=== PATIENT | female | born 1980 | race American Indian/Alaskan Native ===

== ENCOUNTER 2016-07-18 19:53 | Outpatient (CLI) | payer OTHER ==
[2016-07-18] MEDS ORDERED: VISTARIL PO ONE (20:48)
[2016-07-19] MEDS ORDERED: LACTATED RINGERS 0 ML ONE (02:18)
[2016-07-19] MEDS ORDERED: LACTATED RINGERS 1,000 ML ONE (02:18)
[2016-07-19] MEDS ORDERED: POLYCILLIN/NS 2 GM/100 ML 0 GM/0 ML BAG IV ONE (02:18)
[2016-07-19 06:56] VITALS: BP 130/76
== END 2016-07-18 22:15 | disposition home or self-care (01) ==
LOC: TRG 19:53
PROVIDERS: ATTEND Obstetrics & Gynecology
DX: O48.0 Post-term pregnancy (principal); Z3A.40 40 weeks gestation of pregnancy
CPT/HCPCS: 59025; J0290; J7120; Q0177

== ENCOUNTER 2016-07-19 02:07 | Inpatient (IN) | payer OTHER ==
[2016-07-19] MEDS ORDERED: SUBLIMAZE ONE (02:41)
[2016-07-19] MEDS ORDERED: POLYCILLIN/NS 2 GM/100 ML 2 GM/100 ML BAG IV ONE (02:42)
[2016-07-19] MEDS ORDERED: LACTATED RINGERS 2,000 ML ONE (02:42)
[2016-07-19] MEDS ORDERED: ePHEDrine SULFATE ONE (03:22)
[2016-07-19] MEDS ORDERED: fentaNYL-BUPIV 2 MCG/ML-0.125% 200 MCG/100 ML BAG EPIDURAL ONE (03:50)
[2016-07-19] MEDS ORDERED: PITOCin/NS 20 UNIT/1000ML DRIP 20,000 MILLIUNITS/1,000 ML BAG IV ONE (04:03)
[2016-07-19] MEDS ORDERED: MINERAL OIL ONE (04:09)
[2016-07-19] MEDS ORDERED: ERYTHROMYCIN OPHTH OINT ONE (05:13)
[2016-07-19] MEDS ORDERED: SUBLIMAZE IV ONE (07:00)
[2016-07-19] MEDS ORDERED: PERCOCET 5/325 ONE (08:11)
[2016-07-19 08:15] LABS: Hematocrit 36.7 % (30.3-42.9); Hemoglobin 11.5 gm/dl (10.1-14.3)
[2016-07-19] MEDS ORDERED: TYLENOL PO PRN (08:15)
[2016-07-19] MEDS: PERCOCET 5/325 PO PRN ×2 (08:15→23:42)
[2016-07-19] MEDS ORDERED: DERMOPLAST TP PRN (09:00)
[2016-07-19] MEDS ORDERED: PHENERGAN PR PRN (09:00)
[2016-07-19] MEDS ORDERED: ZOFRAN IV PRN (09:00)
[2016-07-19] MEDS ORDERED: BENADRYL PO PRN (09:00)
[2016-07-19] MEDS ORDERED: PITOCin/NS 20 UNIT/1000ML DRIP 20 UNITS/1,000 ML BAG IV SCH (09:00)
[2016-07-19] MEDS ORDERED: TUCKS PAD TP PRN (09:00)
[2016-07-19] MEDS ORDERED: LANSINOH TP PRN (09:00)
[2016-07-19] MEDS ORDERED: MILK OF MAGNESIA PO PRN (09:00)
[2016-07-19] MEDS ORDERED: SODIUM CHLORIDE FLUSH SYRINGE 10 ML IV NR (09:00)
[2016-07-19] MEDS ORDERED: DULCOLAX PR PRN (09:00)
[2016-07-19] MEDS ORDERED: PHENERGAN PO PRN (09:00)
[2016-07-19 10:29] LABS: White Blood Count 15.2 K/mm3 (4.5-11.0)
[2016-07-19 10:30] LABS: Hematocrit 36.7 % (30.3-42.9); Hemoglobin 11.5 gm/dl (10.1-14.3); Mean Corpuscular HGB Conc 31 % (30-34); Mean Corpuscular Hemoglobin 24 pg (28-32); Mean Corpuscular Volume 76 fl (79-97); Platelet Count 197 K/mm3 (140-440); Red Blood Count 4.82 M/mm3 (3.65-5.03); Red Cell Distribution Width 14.3 % (13.2-15.2)
[2016-07-19 10:32] LABS: Basophils % (Manual) 0 % (0.0-1.8); Blastocytes % (Manual) 0 %; Eosinophils % (Manual) 0 % (0.0-4.3)
[2016-07-19 10:33] LABS: Diff Status Complete; Hypochromasia 1+; Ovalocytes 1+; Poikilocytosis 1+
[2016-07-19] MEDS: MOTRIN PO SCH ×3 (12:55→23:41)
[2016-07-19] MEDS: PRENATAL VITAMIN PO SCH (12:56)
[2016-07-19 19:14] LABS: Hematocrit 31.9 % (30.3-42.9); Hemoglobin 10.1 gm/dl (10.1-14.3)
[2016-07-20] MEDS: MOTRIN PO SCH ×3 (05:48→18:40)
[2016-07-20] MEDS ORDERED: BOOSTRIX IM ONE (06:00)
--- NOTE | 2016-07-20 08:13 | Progress Note ---
Assessment and Plan A/P PPD#1 s/p doing well tolerating diet pain controlled lochia min-mod uterus firm breast and bottle feeding d/c home tomorrow Rh+ no rhogam indicated Subjective - Subjective Date of service: 07/20/16 Principal diagnosis: s/p Patient reports: appetite normal, voiding normally, pain well controlled, ambulating normally : doing well, nursing well, bottle feeding Objective - Vital Signs Latest vital signs: Vital Signs Temp Pulse Resp BP 07/20/16 05:48 18 07/20/16 01:00 98.5 F 91 H 20 112/57 07/19/16 23:42 18 07/19/16 23:41 18 07/19/16 16:18 98.6 F 76 18 118/68 07/19/16 12:42 98.5 F 84 20 136/60 07/19/16 10:00 140/64 Intake and Output 07/19/16 07/20/16 07/20/16 22:59 06:59 14:59 Intake Total 240 480 Balance 240 480 Intake: Oral 240 Intake, Free Water 480 Other: Total, Intake Amount 240 # Voids Void 1 2 - Exam Breasts: Present: normal Cardiovascular: Present: Regular rate, Normal S1, Normal S2 Lungs: Present: Clear to auscultation, Normal air movement Abdomen: Present: normal appearance, soft, normal bowel sounds. Absent: distention, tenderness Vulva: both: normal Uterus: Present: normal, firm. Absent: tenderness Extremities: Present: normal Deep Tendon Reflex Grade: Normal +2 Incision: Present: normal, dry - Labs Labs: Abnormal lab results 07/19/16 Range/Units 02:35 WBC 15.2 H (4.5-11.0) K/mm3 MCV 76 L (79-97) fl MCH 24 L (28-32) pg Seg Neuts % (Manual) 90.0 H (40.0-70.0) % Lymphocytes % (Manual) 4.0 L (13.4-35.0) % Seg Neutrophils # Man 13.7 H (1.8-7.7) K/mm3 Lymphocytes # (Manual) 0.6 L (1.2-5.4) K/mm3
[2016-07-20] MEDS ORDERED: M-M-R II VACCINE SUB-Q ONE (12:00)
[2016-07-20] MEDS: PRENATAL VITAMIN PO SCH (12:05)
[2016-07-21] MEDS: MOTRIN PO SCH ×2 (00:02→03:20)
--- NOTE | 2016-07-21 07:43 | Discharge Summary ---
Providers - Providers Date of Admission: 07/19/16 02:07 Date of discharge: 07/21/16 Attending physician: JEAN COTTRELL MD 07/19/16 08:16 Consult to Color Checker [CONS] Routine Reason For Exam: assistance with , SNS Primary care physician: JERRY MIN Hospitalization Reason for admission: active labor Delivery: Episiotomy: none Laceration: none Other procedures: none complications: none Discharge diagnosis: IUP at term delivered baby: male Condition at discharge: Good Disposition: DISCHARGED TO HOME OR SELFCARE Plan - Discharge Medications Prescriptions: Ferrous Sulfate [Feosol 325 MG tab] 325 mg PO BID #30 tablet Ibuprofen [Motrin] 600 mg PO Q8H PRN #30 tablet PRN Reason: Pain Ibuprofen [Motrin 600 MG tab] 600 mg PO Q6H #30 tablet oxyCODONE /ACETAMINOPHEN [Percocet 5/325] 1 tab PO Q6HR PRN #20 tablet PRN Reason: Pain oxyCODONE /ACETAMINOPHEN [Percocet 5/325 mg] 2 tab PO Q4H PRN #30 tablet PRN Reason: Pain, Moderate (4-6) Vit-Fe Fumar-FA [ Vitamin] 1 each PO QDAY #30 tablet - Provider Discharge Summary Activity: no sex for 6 weeks, no strenuous exercise Diet: routine Instructions: routine Additional instructions: [] Smoking cessation referral if applicable(refer to patient education folder for contact #) [] Refer to [facility] Booklet Call your doctor immediately for: * Fever > 100.5 * Heavy vaginal bleeding ( >1 pad per hour) * Severe persistent headache * Shortness of breath * Reddened, hot, painful area to leg or breast * Drainage or odor from incision. * Keep incision clean and dry at all times and follow doctor's instructions regarding bathing/showering - Follow up plan Follow up: JERRY MIN MD [Primary Care Provider] - 7 Days JEAN COTTRELL MD [Staff Physician] - 07/22/17
--- NOTE | 2016-07-21 07:45 | Progress Note ---
Assessment and Plan A/P PPD#2 s/p doing well tolerating diet pain controlled lochia min-mod uterus firm breast and bottle feeding met discharge criteria today Rh+ no rhogam indicated f/u in 4 weeks for PP check Subjective - Subjective Date of service: 07/21/16 Principal diagnosis: s/p Patient reports: appetite normal, voiding normally, pain well controlled, ambulating normally : doing well, nursing well Objective - Vital Signs Latest vital signs: Vital Signs Temp Pulse Resp BP 07/21/16 00:00 98.6 F 82 22 114/72 07/20/16 19:40 98.6 F 84 22 110/68 07/20/16 15:53 98.2 F 90 18 130/84 07/20/16 08:30 98.0 F 91 H 16 120/69 Intake and Output 07/20/16 07/21/16 07/21/16 22:59 06:59 14:59 Intake Total 1060 300 Balance 1060 300 Intake: Oral 660 Intake, Free Water 400 300 Other: Total, Intake Amount 300 Voiding Method Toilet # Voids Void 1 - Exam Breasts: Present: normal Cardiovascular: Present: Regular rate, Normal S1, Normal S2 Lungs: Present: Clear to auscultation, Normal air movement Abdomen: Present: normal appearance, soft, normal bowel sounds Vulva: both: normal Uterus: Present: normal, firm, fundal height below umbilicus (3cm below umbilicus). Absent: bogginess, tenderness Deep Tendon Reflex Grade: Normal +2 Incision: Present: normal, dry
[2016-07-21 08:43] VITALS: BP 116/64
== END 2016-07-21 09:55 | disposition home or self-care (01) | DRG 775 ==
LOC: LD 02:07 → OB 06:22
PROVIDERS: ADMIT Obstetrics & Gynecology; ATTEND Obstetrics & Gynecology
PROC: 10E0XZZ Delivery of Products of Conception, External Approach (ICD-10-PCS; principal; 2016-07-20)
PROC: 00HU33Z Insertion of Infusion Device into Spinal Canal, Percutaneous Approach (ICD-10-PCS; 2016-07-20)
PROC: 3E0R3CZ (ICD-10-PCS; 2016-07-20)
DX: O80 Encounter for full-term uncomplicated delivery (principal); Z3A.40 40 weeks gestation of pregnancy; Z37.0 Single live birth
CPT/HCPCS: 36415; 85007; 85014; 85018; 85025; 90471; 90715; 99211; G0463; J0290; J2590; J3010; J7120

== ENCOUNTER 2016-09-26 08:22 | Day surgery (SDC) | payer OTHER ==
--- NOTE | 2016-09-25 22:53 | History and Physical Report ---
History of Present Illness Date of examination: 09/26/16 Chief complaint: Undesired Fertility, Hernia History of present illness: Pt is a 36 year old female who presents for surgical sterilization despite awareness of long-acting reversible contraceptives and umbilical hernia repair (by Dr Hernandez). Past History Past Medical History: no pertinent history, other (Umbilical hernia ) Past Surgical History: breast surgery (breast biopsy) RESIN COATER History: chlamydia (remote), herpes Family/Genetic History: diabetes Social history: no significant social history - Obstetrical History : 5 Para: 2 Hx # Term Pregnancies: 2 Number of Pregnancies: 0 Spontaneous Abortions: 2 Induced : 1 Number of Living Children: 2 Medications and Allergies Allergies Allergy/AdvReac Type Severity Reaction Status Date / Time No Known Allergies Allergy Verified 09/26/16 08:55 Home Medications Medication Instructions Recorded Confirmed Last Taken Type No Known Home Medications [No 09/24/16 09/24/16 Unknown History Reported Home Medications] Active Meds: Active Medications Cefazolin Sodium (Ancef/Sterile Water 2 Gm/20 Ml) 2 gm in 20 mls @ 80 mls/hr IV PREOP NR PRN Reason: Protocol Lactated Ringer's (Lactated Ringers) 1,000 mls @ 100 mls/hr IV DIRECT LIBRADO Review of Systems All systems: negative - Physical Exam Breasts: Positive: deferred Cardiovascular: Regular rate Lungs: Positive: Clear to auscultation Abdomen: Positive: soft, hernia (umbilical ) Extremities: Positive: normal Results All other labs normal. Assessment and Plan A: Undesired Fertility Umbilical Hernia P: Proceed with joint bilateral tubal ligation (by Dr Lin) and umbilical hernia repair (by Dr Hernandez) and other indicated procedures.
[2016-09-26] MEDS ORDERED: LACTATED RINGERS 1,000 ML IV SCH (09:00)
[2016-09-26] MEDS ORDERED: ANCEF/STERILE WATER 2 GM/20 ML 2 GM/20 ML SYRINGE IV NR (09:00)
[2016-09-26] MEDS ORDERED: MARCAINE 0.5% 30 ML INFILTRATI ONE (09:17)
--- NOTE | 2016-09-26 09:33 | Anesthesia Consultation ---
Anesthesia Consult and Med Hx Date of service: 09/26/16 - Airway Anesthetic Teeth Evaluation: Good ROM Head & Neck: Adequate Mental/Hyoid Distance: Adequate Intubation Access Assessment: Probably Good - Pulmonary Exam CTA: Yes - Cardiac Exam Cardiac Exam: RRR - Pre-Operative Health Status ASA Pre-Surgery Classification: ASA1 Proposed Anesthetic Plan: General - Pre-Anesthesia Comment Pre-Anesthesia Comments: Has a broken tooth in rear - Central Nervous System Hx Psychiatric Problems: No - Other Systems Hx Alcohol Use: Yes (occas) Hx Cancer: No
--- NOTE | 2016-09-26 09:33 | Anesthesia Day of Surgery ---
Anesthesia Day of Surgery - Day of Surgery Patient Examined: Yes Patient H&P Reviewed: Yes Patient is NPO: Yes
[2016-09-26] MEDS ORDERED: NACL BACTERIOSTATIC INFILTRATI ONE (09:36)
[2016-09-26] MEDS ORDERED: XYLOCAINE MPF 2% ONE (09:51)
[2016-09-26] MEDS ORDERED: ZEMURON IV ONE (09:51)
[2016-09-26] MEDS ORDERED: SUBLIMAZE ONE (09:51)
[2016-09-26] MEDS ORDERED: DIPRIVAN 10 MG/ML IV ONE (09:51)
[2016-09-26] MEDS ORDERED: DECADRON ONE (09:51)
[2016-09-26] MEDS ORDERED: REGLAN PO NR (10:00)
[2016-09-26] MEDS ORDERED: ZOFRAN IV PRN (10:00)
[2016-09-26] MEDS ORDERED: NEO SYNEPHRINE/NS Syringe(OR USE) IV ONE (10:00)
[2016-09-26] MEDS ORDERED: PEPCID PO NR (10:00)
[2016-09-26] MEDS ORDERED: VERSED IV NR (10:00)
[2016-09-26 10:13] LABS: Hematocrit 36.9 % (30.3-42.9); Hemoglobin 11.5 gm/dl (10.1-14.3); Mean Corpuscular HGB Conc 31 % (30-34); Mean Corpuscular Hemoglobin 24 pg (28-32); Mean Corpuscular Volume 76 fl (79-97); Platelet Count 184 K/mm3 (140-440); Red Blood Count 4.88 M/mm3 (3.65-5.03); Red Cell Distribution Width 14.4 % (13.2-15.2)
[2016-09-26] MEDS ORDERED: NEOSTIGMINE ONE (10:39)
[2016-09-26] MEDS ORDERED: ROBINUL ONE ×2 (10:39)
[2016-09-26] MEDS ORDERED: MARCAINE 0.5% INFILTRATI ONE (11:24)
[2016-09-26] MEDS ORDERED: NACL 0.9% IR ONE (11:24)
[2016-09-26] MEDS ORDERED: SILVER NITRATE TP ONE ×2 (11:27→11:30)
--- NOTE | 2016-09-26 11:50 | Operative Report ---
Operative Report Operative Report: Date of procedure: September 26, 2016 Preoperative diagnosis: Undesired Fertility Postoperative diagnosis: Same Procedure: Laparoscopic bilateral tubal ligation via Filshie clip Surgeon: Julissa Lin M.D. Anesthesia: Gen. endotracheal anesthesia Findings: 1) Normal sized retroverted uterus that sounded to 10 cm 2) Normal appearing ovaries and tubes, hyperemic tissues Estimated blood loss: 10 mL IV fluid: 200 mL Urine output: 75 mL clear prior to the procedure Specimens: None Complications: None. Counts correct 2 Disposition: Stable to PACU Indications for procedure: Patient is a 36-year-old 5 para 2031 who desires permanent sterilization. She is aware of long-acting reversible contraceptives as well as the risks and complications of the procedure and desires to proceed. She also has an umbilical hernia which she is having repaired by Dr Hernandez concurrently. Operation in detail: After the risks, benefits, alternatives and complications of the procedure were explained to the patient she gave informed consent for the procedure. She was subsequently taken to the operating room with her IV noted to be running and placed in the dorsal supine position with sequential compression devices functioning. General endotracheal anesthesia was then induced without difficulty. An exam under anesthesia was then performed yielding a normal size retroverted mobile uterus. The patient was then placed in placement dorsal lithotomy position and prepped and draped in normal sterile fashion. A timeout was then performed. The bladder was then drained of urine yielding 75 mL of clear urine. An open sided speculum was placed into the vagina for visualization of the cervix. A single-tooth tenaculum was placed on the anterior lip of the cervix for traction. The uterus was then sounded to 10 cm. A SkyKick uterine manipulator was then placed. The single-toothed tenaculum and speculum was removed from the vagina. The surgeon's gloves were then changed. Attention was then turned to entry into the abdominal cavity. An infraumbilical incision was made with an 11 blade. The skin was grasped either side of the umbilicus and tented up. A Veres needle was placed into the peritoneal cavity, confirmed with a saline drop test. The abdomen was then insufflated with CO2 gas to a pressure of 15 mmHg. A 5 mm trocar was then placed under direct visualization. The anatomic survey was then performed and the findings as indicated above. A secod incision was made 4 cm above the pubic symphysis in the midline. An 8 mm trocar was then placed under direct visualization. The patient was placed in Trendelenburg position. The fallopian tubes were identified bilaterally. Two Filshie clips were then placed across the ampullary region of each fallopian tube. At this time, the trocar above the pubic symphysis was removed. The incision was infiltrated with 0.5% marcaine and reapproximated with 4-0 Vicryl in a subcuticular fashion. The umbilical trocar was left in place. The tubal ligation was complete. At this time, Dr Hernandez performed the umbilical hernia repair. Please see separate dictation for that procedure. The speculum was then replaced, and the Hulka manipultor was removed. Silver nitrate was placed on the cervix and hemostasis was noted. The patient was placed into the dorsal supine position and extubated without difficulty. She was subsequently taken to the PACU in stable condition. All instrument and lap counts were correct 2.
[2016-09-26] MEDS: DILAUDID IV PRN ×2 (12:06→12:20)
--- NOTE | 2016-09-26 12:09 | Short Stay Summary ---
Short Stay Documentation Date of service: 09/26/16 - History H&P: dictated Social history: no significant social history - Allergies and Medications Current Medications: Allergies No Known Allergies Allergy (Verified 09/26/16 08:55) Home Medications Medication Instructions Recorded Confirmed Last Taken Type No Known Home Medications [No 09/24/16 09/24/16 Unknown History Reported Home Medications] Active Medications Famotidine (Pepcid) 20 mg PO PREOP NR Stop: 09/26/16 18:00 Last Admin: 09/26/16 10:02 Dose: 20 mg Hydromorphone HCl (Dilaudid) 0.5 mg IV Q10MIN PRN PRN Reason: Pain , Severe (7-10) Stop: 09/26/16 15:00 Cefazolin Sodium (Ancef/Sterile Water 2 Gm/20 Ml) 2 gm in 20 mls @ 80 mls/hr IV PREOP NR PRN Reason: Protocol Stop: 09/26/16 23:45 Lactated Ringer's (Lactated Ringers) 1,000 mls @ 100 mls/hr IV DIRECT LIBRADO Last Admin: 09/26/16 09:35 Dose: 100 mls/hr Metoclopramide HCl (Reglan) 10 mg PO PREOP NR Stop: 09/26/16 18:00 Last Admin: 09/26/16 10:02 Dose: 10 mg Midazolam HCl (Versed) 2 mg IV PREOP NR Stop: 09/26/16 23:59 Last Admin: 09/26/16 10:03 Dose: 2 mg Ondansetron HCl (Zofran) 4 mg IV ONCE PRN PRN Reason: Nausea And Vomiting Stop: 09/26/16 15:00 - Physical exam Breasts: deferred - Brief post op/procedure progress note Date of procedure: 09/26/16 Pre-op diagnosis: 1) Undesired Fertility Post-op diagnosis: same Procedure: Laparoscopic tubal ligation via Filshie Clip Method Anesthesia: GETA Findings: 1) Normal sized retroverted uterus that sounded to 10 cm 2) Normal appearing ovaries and tubes, hyperemic tissues Surgeon: KEM BISHOP Estimated blood loss: minimal Pathology: none Condition: stable - Hospital course Hospital course: Patient underwent laparoscopic bilateral tubal ligation via Filshie clip method by Dr. Bishop and umbilical hernia repair performed by Dr. Madrid which she tolerated well. She was observed in the PACU until she met discharge criteria. She will follow up with Dr. aMdrid in 10 days, and with Dr. Bishop in 14 days. - Disposition Condition at discharge: Stable Disposition: DISCHARGED TO HOME OR SELFCARE - Discharge Diagnoses (1) Encounter for sterilization Status: Acute (2) Umbilical hernia Status: Acute Qualifiers: Obstruction and gangrene presence: without obstruction or gangrene Qualified Code(s): K42.9 - Umbilical hernia without obstruction or gangrene Short Stay Discharge Plan Activity: other (Nothing in vagina x 4 wks, no heavy lifting over 15 pounds for 4 wks ) Weight Bearing Status: Full Weight Bearing Diet: regular Wound: keep clean and dry, remove dressing (two days after surgery ), per your surgeon's advice Follow up with: JERRY MIN MD [Primary Care Provider] - 7 Days LILLIAN MADRID MD [Staff Physician] - 10/08/16 (postop visit ) KEM BISHOP MD [Staff Physician] - 10/10/16 (post op exam ) Prescriptions: Ibuprofen [Motrin] 800 mg PO Q8HR PRN #30 tablet PRN Reason: Pain oxyCODONE /ACETAMINOPHEN [Percocet 5/325] 1 tab PO Q6HR PRN #40 tablet PRN Reason: Pain
--- NOTE | 2016-09-26 12:18 | Post Anesthesia Evaluation ---
- Post Anesthesia Evaluation Patient Participated: Yes Airway Patent: Yes Stable Respiratory Function: Yes Temp > 96.8F: Yes Pain Manageable: Yes Adequeate Hydration: Yes Anesthesia Complications: No Block Receding Appropriately: Not Applicable
[2016-09-26] MEDS ORDERED: PERCOCET 5/325 PO PRN (12:27)
[2016-09-26 13:08] VITALS: BP 148/94
--- NOTE | 2016-09-26 15:29 | Operative Report ---
PREOPERATIVE DIAGNOSIS: Umbilical hernia. POSTOPERATIVE DIAGNOSIS: Umbilical hernia. SURGERY: Laparoscopic repair of umbilical hernia. ANESTHESIA: General. We used for that purpose a medium sized Ventralex graft. The defect is about 2 x 2 cm. There was nothing really attached to the hernial sac. DESCRIPTION OF PROCEDURE: With the patient in supine position, prepped and draped in usual fashion. I infiltrated the area of the right mid abdomen with about 20 mL of 0.5% Marcaine. Then, the wound was made about 0.5 cm and then #5 trocar was inserted in that area and another one in the right lower abdomen. We assessed the situation, and the defect was barely about 2 cm and this could be seen, so we went ahead and put a medium sized Ventralex graft within the apex of the hernia sac. Then, I tacked the graft all around and two rows using for that purpose a tacker. We had good hemostasis. We were well satisfied. Then, all the trocars were removed tacking the end of the graft to the fascia with use of 0 Vicryl and the skin with 4-0 Vicryl for the intracuticular layer. Bandage were applied. The patient was then transferred to the recovery in good condition, going to have an abdominal binder. The patient was then transferred to the recovery room in good condition. I talked to her on the phone, whether should go home today. She is to call me if she has any question, otherwise see me in about 10 days. JOB# [id number] DG/MICHELLE
== END 2016-09-26 14:00 | disposition home or self-care (01) ==
LOC: OR 08:22
PROVIDERS: ATTEND Obstetrics & Gynecology
DX: Z30.2 Encounter for sterilization (principal); K42.9 Umbilical hernia without obstruction or gangrene; Z72.89 Other problems related to lifestyle; Z98.890 Other specified postprocedural states; Z83.3 Family history of diabetes mellitus
CPT/HCPCS: 36415; 49652; 58671; 81025; 85027; 86850; 86900; 86901; C1781; J0690; J1100; J1170; J2250; J2370; J2405; J2704; J2710; J3010; J7120